=== PATIENT | male | born 1945 | race Two or more races ===

== ENCOUNTER 2020-04-21 17:00 | Emergency (ER) | payer OTHER ==
[~2020-04-21] VITALS: Ht 170.2 cm; Wt 72.6 kg
[2020-04-21] MEDS ORDERED: ZETIA10 MG (18:04)
[2020-04-21] MEDS ORDERED: COZAAR100 MG (18:05)
[2020-04-21] MEDS ORDERED: GLIPIZIDE XL5 MG (18:05)
[2020-04-21] MEDS ORDERED: METFORMIN HCL500 M3 (18:06)
[2020-04-21] MEDS ORDERED: JANUMET (18:07)
[2020-04-21] MEDS ORDERED: PROTONIX (18:08)
[2020-04-21] MEDS ORDERED: GLIPIZIDE 10 MG (18:08)
[2020-04-21] MEDS ORDERED: GEMFIBROZIL 600 MG (18:09)
[2020-04-21] MEDS ORDERED: NEURONTIN300 MG (18:10)
[2020-04-21] MEDS ORDERED: DOXAZOSIN (18:11)
== END 2020-04-21 22:14 | disposition home or self-care (01) ==
LOC: ER 17:00
DX: N39.0 Urinary tract infection, site not specified (principal)

== ENCOUNTER 2020-05-12 16:41 | Emergency (ER) | payer OTHER ==
[~2020-05-12] VITALS: Ht 170.2 cm; Wt 65.8 kg
[~2020-05-12 16:41] MED LIST: COZAAR100 MG; DOXAZOSIN; GEMFIBROZIL 600 MG; GLIPIZIDE 10 MG; GLIPIZIDE XL5 MG; JANUMET; METFORMIN HCL500 M3; NEURONTIN300 MG; PROTONIX; ZETIA10 MG
== END 2020-05-12 19:08 | disposition home or self-care (01) ==
LOC: ER 16:41
DX: N39.0 Urinary tract infection, site not specified (principal); R50.83 Postvaccination fever; B96.1 Klebsiella pneumoniae [K. pneumoniae] as the cause of diseases classified elsewhere; R31.0 Gross hematuria; T50.B95A Adverse effect of other viral vaccines, initial encounter; Y92.89 Other specified places as the place of occurrence of the external cause

== ENCOUNTER 2020-05-14 03:32 | Inpatient (IN) | payer OTHER ==
[~2020-05-14] VITALS: Ht 170.2 cm
[2020-05-14] MEDS ORDERED: PROTONIX40 MG PO (03:53)
[2020-05-14] MEDS ORDERED: JANUMET 50-1,01 EACH PO (03:54)
[2020-05-14] MEDS ORDERED: GEMFIBROZIL600 MG PO (03:55)
[2020-05-14] MEDS ORDERED: GLUCOTROL10 MG PO (03:55)
[2020-05-14] MEDS ORDERED: CARDURA1 MG PO (03:55)
== END 2020-05-18 13:47 | disposition home or self-care (01) | DRG 690 ==
LOC: ER 03:32 → MEDI 10:29
PROVIDERS: ADMIT Internal Medicine; ATTEND Internal Medicine
PROC: BW21ZZZ Computerized Tomography (CT Scan) of Abdomen and Pelvis (ICD-10-PCS; principal; 2020-05-14)
PROC: B24BYZZ Ultrasonography of Heart with Aorta using Other Contrast (ICD-10-PCS; 2020-05-15)
DX: N39.0 Urinary tract infection, site not specified (principal); N17.9 Acute kidney failure, unspecified; E87.1 Hypo-osmolality and hyponatremia; E11.65 Type 2 diabetes mellitus with hyperglycemia; I11.9 Hypertensive heart disease without heart failure; I25.10 Atherosclerotic heart disease of native coronary artery without angina pectoris; E78.5 Hyperlipidemia, unspecified; Z20.822 Contact with and (suspected) exposure to COVID-19

== ENCOUNTER 2020-07-24 09:45 | Inpatient (IN) | payer OTHER ==
[~2020-07-24] VITALS: Ht 167.6 cm; Wt 155.0 kg
[~2020-07-24 09:45] MED LIST changes: +CARDURA1 MG PO; +GEMFIBROZIL600 MG PO; +GLUCOTROL10 MG PO; +JANUMET 50-1,01 EACH PO; +PROTONIX40 MG PO
[2020-07-24] MEDS ORDERED: JANUMET XR 50-1 EAC1 PO (11:28)
[2020-07-24] MEDS ORDERED: CRESTOR10 MG PO (11:29)
[2020-07-24] MEDS ORDERED: ADULT LOW DOSE81 M1 PO (11:29)
[2020-07-24] MEDS ORDERED: LOPID PO (11:29)
[2020-07-24] MEDS ORDERED: FEOSOL325 MG PO (11:30)
[2020-07-31] MEDS ORDERED: FENOFIBRIC ACI135 MG (11:28)
[2020-07-31] MEDS ORDERED: CIPROFLOXACIN500 MG (11:29)
[2020-07-31] MEDS ORDERED: METOPROLOL SUCC50 MG (11:29)
[2020-07-31] MEDS ORDERED: LATANOPROST2.5 ML (11:29)
[2020-07-31] MEDS ORDERED: DORZOLAMIDE-TIM10 ML (11:30)
[2020-07-31] MEDS ORDERED: NORVASC2.5 MG (11:30)
[2020-07-31] MEDS ORDERED: CEFUROXIME500 MG (11:30)
[2020-07-31] MEDS ORDERED: DOXAZOSIN MESYLA2 MG (11:30)
[2020-07-31] MEDS ORDERED: INTEGRA PLUS C1 EACH (11:30)
[2020-07-31] MEDS ORDERED: SYNJARDY 12.5-1 EAC1 (11:30)
== END 2020-08-02 09:16 | disposition home or self-care (01) | DRG 713 ==
LOC: O/R 07-31 09:45 → SURH 07-31 10:51
PROVIDERS: ADMIT Urology; ATTEND Urology
PROC: 0VT08ZZ Resection of Prostate, Via Natural or Artificial Opening Endoscopic (ICD-10-PCS; principal; 2020-07-31 10:30)
DX: N40.0 Benign prostatic hyperplasia without lower urinary tract symptoms (principal); N39.0 Urinary tract infection, site not specified